=== PATIENT | male | born 1930 | race Caucasian/White ===

== ENCOUNTER 2017-09-28 15:29 | Observation (INO) | payer OTHER ==
[2017-09-28 16:02] LABS: BASOPHILS % (AUTO) 1 % (0-3); EOSINOPHILS % (AUTO) 1 % (0-9); HEMATOCRIT 46 % (39-53); MEAN CORPUSCULAR HGB CONC 33.1 gm/dl (32.0-36.0); MEAN CORPUSCULAR VOLUME 95 fL (80-100); MONOCYTES % (AUTO) 8.7 % (0-12)
[2017-09-28 16:08] LABS: POTASSIUM 3.5 mMol/L (3.5-5.1)
[2017-09-28] MEDS ORDERED: APAP/HYDROCODONE 325/5 TAB PO ONE (16:17)
[2017-09-28] MEDS ORDERED: APAP/HYDROCODONE 325/5 TAB ONE (16:43)
[2017-09-28 19:13] VITALS: RESP 18
[2017-09-28] MEDS ORDERED: PATIENT EDUCATION 1 MISC PRN (20:46)
[2017-09-28] MEDS: APAP/HYDROCODONE 325/5 TAB PO PRN (23:16)
[2017-09-29 02:15] VITALS: TEMP 98.1; O2SAT 95
[2017-09-29] MEDS: APAP/HYDROCODONE 325/5 TAB PO PRN (06:11)
[2017-09-29] MEDS ORDERED: AMLODIPINE 5 MG TAB ONE (08:33)
[2017-09-29] MEDS ORDERED: ISOSORBIDE MONONITRATE 30 MG TER PO ONE (08:34)
[2017-09-29] MEDS ORDERED: LEVOFLOXACIN 500 MG TAB ONE (08:34)
[2017-09-29] MEDS ORDERED: PREDNISONE 20 MG TAB ONE (08:34)
[2017-09-29] MEDS ORDERED: FUROSEMIDE 40 MG TAB ONE (08:34)
[2017-09-29] MEDS ORDERED: GLIMEPIRIDE 2 MG TAB ONE (08:34)
[2017-09-29] MEDS ORDERED: LISINOPRIL 5 MG TAB ONE (08:34)
[2017-09-29] MEDS ORDERED: POLYETHYLENE GLYCOL 17 GM/1 TBS PDS ONE (08:35)
[2017-09-29 08:40] VITALS: BP 163/74; PULSE 76
[2017-09-29] MEDS ORDERED: METOPROLOL TARTRATE 25 MG TAB PO SCH (09:00)
[2017-09-29] MEDS ORDERED: ENOXAPARIN 40 MG SOL SC SCH (09:00)
== END 2017-09-29 09:30 | DRG 536 ==
LOC: ED 15:29 → ACUTE CARE 18:39 → UNDOADMOB 18:39 → ACUTE CARE 18:45
PROVIDERS: ADMIT Emergency Medicine; ATTEND Emergency Medicine
DX: S72.114A Nondisplaced fracture of greater trochanter of right femur, initial encounter for closed fracture (principal); Z91.81 History of falling; Z95.0 Presence of cardiac pacemaker; W01.0XXA Fall on same level from slipping, tripping and stumbling without subsequent striking against object, initial encounter
CPT/HCPCS: 36415; 72192; 73501; 80048; 85025; 99283; J1650; A9270; A9270-GY